=== PATIENT | female | born 1970 | race Caucasian/White ===

== ENCOUNTER 2017-04-13 10:59 | Emergency (ER) | payer MEDICAID ==
[~2017-04-13] VITALS: Ht 165.1 cm; Wt 93.2 kg
[2017-04-13 11:11] VITALS: Ht 165.1 cm; Wt 93.2 kg
[2017-04-13] MEDS ORDERED: KETOROLAC 30 MG INJ IM STA (11:42)
[2017-04-13] MEDS ORDERED: HYDR-902 PO (11:45)
--- NOTE | 2017-04-13 11:54 | ERD ---
ER Documentation Chief Complaint Date/Time DATE: 04/13/17 TIME: 11:50 Chief Complaint fx right ankle-needs ortho; pt cont to have ankle pain HPI This is a 47-year-old female who presents the emergency department today complaining of right ankle pain. She is here with her daughter who indicated that yesterday she was at [employer] and fell on some uneven ground. She went to [facility] and was told she had an ankle fracture and that she needs to see an orthopedic. States she is here because of pain and that she was told that this hospital has speech language specialist. States the medication she is taking for pain is not helping. Denies any fevers or chills. Denies any new trauma peer ROS All systems reviewed and are negative except as per history of present illness. Medications Home Meds Active Scripts Hydrocodone/Acetaminophen (Alcester 10-325 Tablet) 1 Each Tablet, 1 TAB PO Q6H Y for PAIN, #20 TAB Prov:ARMAND BELL PA-C 04/13/17 Reported Medications [None] No Conflict Check 08/01/10 Allergies Allergies: Coded Allergies: No Known Drug Allergies (Verified Allergy, Mild, 08/01/10) PMhx/Soc History of Surgery: No Anesthesia Reaction: No Hx Neurological Disorder: No Hx Respiratory Disorders: No Hx Cardiac Disorders: No Hx Psychiatric Problems: No Hx Miscellaneous Medical Probl: No Hx Alcohol Use: No Hx Substance Use: No Hx Tobacco Use: No Smoking Status: Never smoker Physical Exam Vitals Vital Signs Date Time Temp Pulse Resp B/P Pulse Ox O2 Delivery O2 Flow Rate FiO2 04/13/17 11:11 98.2 85 18 131/75 98 Physical Exam Const: Sitting in wheelchair, no acute distress Head: Atraumatic Eyes: Normal Conjunctiva ENT: Normal External Ears, Nose and Mouth. Neck: Full range of motion..~ No meningismus. Resp: Clear to auscultation bilaterally Cardio: Regular rate and rhythm, no murmurs Skin: No petechiae or rashes MSK: Right ankle wrapped up in splint. Patient able to move toes. Good cap refill. Neur: Awake and alert Psych: Normal Mood and Affect Results 24 hrs Current Medications Medications (Trade) Dose Ordered Sig/Rolly Route PRN Reason Start Time Stop Time Status Last Admin Dose Admin Ketorolac Tromethamine (Toradol) 30 mg ONCE STAT IM 04/13/17 11:42 04/13/17 11:43 DC 04/13/17 11:47 Procedures/MDM This is a 47-year-old female who presents the emergency department today with her daughter complaining of right ankle pain since yesterday after fracturing her ankle. Patient did bring the information from the previous hospital however she had no report. She did bring the disc and I did look at the images on the disc and it does correlate with the patient's discharge paperwork but states she has a bimalleolar fracture. I have explained this to the patient. Patient is afebrile and otherwise well-appearing. At this time I do not feel the patient requires admission. Patient did have paperwork to apply for [facility] and does not currently have insurance at this time. I have discussed this with the attending physicians and they have indicated that she may go to [facility] given that she does not have any insurance. I have explained this to the daughter. I have also given her a list of other orthopedic resources and instructed her that she may follow-up with her clinic for referral to orthopedics or she may go to the community hospital. I did not remove the splint given the unstable fracture however I was able to lift up the Soren wrap a little bit and there does not appear to be area any erythema or warmth. She does have good cap refill and have low suspicion for vascular injury at this time. Patient symptoms at this time most consistent with bimalleolar fracture. She has had no new trauma and I do not feel that she requires repeat imaging at this time. Low suspicion for septic joint or gout. Patient was given a Toradol injection here in the emergency department. I did discuss with the attendings about giving her some stronger pain medication she will be given Alcester 07/23/2025 as the Alcester 02/20/2025 she is taking is not helping her. This is the patient's first visit to the emergency room. At this time the patient is stable for discharge and outpatient management. Patient should follow up with their PCP in the next 1-2 days. They may return to the emergency department sooner for any persistent or worsening of symptoms. Patient understood and agreed with the plan. Departure Diagnosis: Primary Impression: Ankle injury Encounter type: initial encounter Laterality: right Qualified Code: S99.911A - Ankle injury, right, initial encounter Condition: Fair Patient Instructions: Fracture, Ankle (General) Referrals: your PCP [facility] Hours: Mon-Fri 9:00 AM - 5:00 PM [facility] Usted se huston hecho un examen mdico de control que le indica que no est en winter condicin que requiera tratamiento urgente en el Departamento de Emergencia. Un estudio ms profundo y el tratamiento de villa condicin pueden esperar sin ningn riesgo hasta que usted sea atendida/o en el consultorio de villa mdico o winter cl lidia. Es responsabilidad suya arreglar winter jules para el seguimiento del matthew. MANEJO DE CONDICIONES NO URGENTES EN EL FUTURO 1) Si usted tiene un mdico de atencin primaria: Usted debera llamar a villa mdico de atencin primaria antes de venir al departamento de emergencia. Despus de las horas de consultorio, villa doctor o villa asociado/a est disponible por telfono. El mdico o enfermero de leonard en el servicio telefnico puede asesorarle por monty medio para atender el problema, o matthew contrario se puede programar winter jules. 2) Si usted no tiene un mdico de atencin primaria: Llame al mdico o condado institucions de referencia que aparece abajo nicolasa las horas de consultorio para hacer winter jules para que le vean. SI USTED NO PUEDE PAGAR PARA SYLWIA UN MEDICO puede ir a: [facility] [id number] [place] [address] [facility] [address] [place] [address] [facility] [address] [place] [address] [facility] [address] [place] [address] Additional Instructions: Llame al doctor MAANA y ulysses winter JULES PARA DENTRO DE 1-2 MCQUEEN.Dgale a la secretaria que nosotros le instruimos hacer esta jules.Avise o llame si villa condicin se empeora antes de la jules. Regresa aqui si peor o no mejor. Make an appointment with your primary care doctor for referral to orthopedic Or go to [facility] Take new medication as prescribed and do not take your old medication until you run out of the new medication ARMAND BELL PA-C Apr 13, 2017 11:54
== END 2017-04-13 12:08 | disposition home or self-care (01) ==
LOC: FTE 10:59
DX: S99.911A Unspecified injury of right ankle, initial encounter (principal); W18.39XA Other fall on same level, initial encounter; Y92.9 Unspecified place or not applicable
CPT/HCPCS: 96372; J1885; Z7502